=== PATIENT | male | born 1955 | race Caucasian/White ===

== ENCOUNTER 2016-11-30 19:30 | Inpatient (IN) | payer OTHER, BC ==
[~2016-11-30] VITALS: Ht 185.4 cm; Wt 112.0 kg
[2016-11-30 19:32] VITALS: BP 115/64; PULSE 64; RESP 15; TEMP 98; O2SAT 98
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
[2016-11-30 20:15] LABS: AUTOMATED NEUTROPHIL # 5.3 TH/MM3 (1.8-7.7); BASOPHIL % 0.3 % (0.0-2.0); EOSINOPHIL # 0.2 TH/MM3 (0-0.4); EOSINOPHIL % 3.4 % (0.0-4.0); HEMATOCRIT 37.1 % (39.0-51.0); HEMO FLAGS DIFF FINAL; LYMPH % 16.9 % (9.0-44.0); LYMPHOCYTE # 1.2 TH/MM3 (1.0-4.8); MEAN CELL VOLUME 95.2 FL (80.0-100.0); MEAN CORPUSCULAR HEMOGLOBIN 33.7 PG (27.0-34.0); MEAN CORPUSCULAR HGB CONC 35.4 % (32.0-36.0); MONO % 5.1 % (0.0-8.0); NEUT % 74.3 % (16.0-70.0); PLATELET COUNT 156 TH/MM3 (150-450); RED BLOOD COUNT 3.89 MIL/MM3 (4.50-5.90); RED CELL DISTRIBUTION WIDTH 12.3 % (11.6-17.2); WHITE BLOOD COUNT 7.1 TH/MM3 (4.0-11.0)
[2016-11-30] MEDS ORDERED: LIDOCAINE 1%/EPINEPHrine 1:100,000 SOLN 20 ML VIAL INFIL ONE (20:30)
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
[2016-11-30 20:37] LABS: BICARBONATE 27.9 MEQ/L (21.0-32.0); POTASSIUM 3.8 MEQ/L (3.5-5.1)
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
[2016-11-30] MEDS ORDERED: IOHEXOL 350 MG/ML 10 ML VIAL (for RAD DIAG) IV ONE (21:14)
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
[2016-11-30] MEDS ORDERED: NALOXONE HCL 0.4 MG/ML AMP IV PUSH PRN (21:45)
[2016-11-30] MEDS: MORPHINE SULFATE 4 MG/ML INJ IV PUSH PRN (22:18)
[2016-11-30] MEDS ORDERED: SODIUM CHLORIDE 0.9% FLUSH 5 ML FLUSH IVF PRN (23:15)
[2016-11-30] MEDS ORDERED: ACETAMINOPHEN 325 MG TAB PO PRN (23:15)
[2016-11-30] MEDS ORDERED: ONDANSETRON HCL 4 MG/2 ML VIAL IV PRN (23:15)
[2016-11-30] MEDS ORDERED: ENALAPRILAT 1.25 MG/ML VIAL IV PRN (23:15)
[2016-11-30 23:53] VITALS: BP 102/56; PULSE 79; RESP 18; O2SAT 97
[2016-12-01] MEDS ORDERED: ACETAMINOPHEN 1000 MG/100 ML VIAL IV SCH
[2016-12-01] MEDS ORDERED: PANTOPRAZOLE SODIUM 40 MG VIAL IVP SCH
[2016-12-01] MEDS: DOCUSATE SODIUM 100 MG CAP PO SCH ×2 (00:33→08:47)
[2016-12-01] MEDS: METHOCARBAMOL 500 MG TAB PO SCH ×3 (00:33→13:22)
[2016-12-01 01:00] VITALS: BP 130/69; PULSE 84; RESP 18; TEMP 98.7; O2SAT 98
[2016-12-01] MEDS ORDERED: LISI10TA3 PO (02:02)
[2016-12-01] MEDS ORDERED: LAMI250T PO (02:03)
[2016-12-01] MEDS: BACITRACIN TOP OINT 15 GM TUBE TOP SCH ×2 (02:21→08:48)
[2016-12-01] MEDS: oxyCODONE/ACETAMINOPHEN 5 MG/325 MG TAB PO PRN ×2 (03:48→17:45)
[2016-12-01 04:10] VITALS: BP 118/66; PULSE 77; RESP 17; TEMP 97.5; O2SAT 97
[2016-12-01 06:17] LABS: AUTOMATED NEUTROPHIL # 5.7 TH/MM3 (1.8-7.7); BASOPHIL % 0.2 % (0.0-2.0); HEMATOCRIT 31.8 % (39.0-51.0); HEMO FLAGS DIFF FINAL; LYMPH % 10.3 % (9.0-44.0); LYMPHOCYTE # 0.7 TH/MM3 (1.0-4.8); MEAN CELL VOLUME 94.8 FL (80.0-100.0); MEAN CORPUSCULAR HEMOGLOBIN 33.7 PG (27.0-34.0); MEAN CORPUSCULAR HGB CONC 35.6 % (32.0-36.0); MONO % 6.7 % (0.0-8.0); NEUT % 82.8 % (16.0-70.0); PLATELET COUNT 133 TH/MM3 (150-450); RED BLOOD COUNT 3.35 MIL/MM3 (4.50-5.90); RED CELL DISTRIBUTION WIDTH 12.1 % (11.6-17.2); WHITE BLOOD COUNT 6.9 TH/MM3 (4.0-11.0)
[2016-12-01 06:28] LABS: INTERNATIONAL NORMALIZED RATIO 1.1 RATIO; PROTHROMBIN TIME - PATIENT 11.7 SEC (9.8-11.6)
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
[2016-12-01 07:25] LABS: ALT (GPT) 25 U/L (12-78); ANION GAP 8 MEQ/L (5-15); AST (GOT) 27 U/L (15-37); BICARBONATE 26.3 MEQ/L (21.0-32.0); BLOOD UREA NITROGEN 14 MG/DL (7-18); CHLORIDE 105 MEQ/L (98-107); GLOMERULAR FILTRATION RATE 93 ML/MIN (>89); POTASSIUM 4.3 MEQ/L (3.5-5.1); SODIUM (NA) 139 MEQ/L (136-145)
[2016-12-01 07:27] LABS: ALKALINE PHOSPHATASE 73 U/L (45-117); TOTAL BILIRUBIN ADULT 0.8 MG/DL (0.2-1.0)
[2016-12-01 08:12] VITALS: BP 116/75; PULSE 77; RESP 16; TEMP 97.8; O2SAT 98
[2016-12-01] MEDS: ACETAMINOPHEN 1000 MG/100 ML VIAL IV SCH ×2 (08:47→13:22)
[2016-12-01] MEDS: MORPHINE SULFATE 4 MG/ML INJ IV PUSH PRN ×2 (08:49→13:23)
[2016-12-01] MEDS ORDERED: SODIUM CHLORIDE FLUSH BID IVF SCH (09:00)
[2016-12-01] MEDS ORDERED: MAGNESIUM HYDROXIDE SUSP 30 ML CUP PO SCH (09:00)
[2016-12-01] MEDS ORDERED: LIDOCAINE HCL 5% PATCH TD SCH (09:00)
[2016-12-01 12:22] VITALS: BP 121/79; PULSE 78; RESP 18; TEMP 97.7; O2SAT 98
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
[2016-12-01 16:00] VITALS: BP 121/79; PULSE 78; RESP 16; TEMP 97.7; O2SAT 98
[2016-12-01] MEDS ORDERED: DOCU1CAP39 PO (16:56)
[2016-12-01] MEDS ORDERED: MILKSUS PO (16:56)
[2016-12-01] MEDS ORDERED: OXYC1TAB63 PO (18:18)
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
[2016-12-01] MEDS ORDERED: REMOVE OLD LIDOCAINE PATCH T-DERMAL SCH (21:00)
== END 2016-12-01 20:36 | disposition home or self-care (01) | DRG 501 ==
LOC: NEPC 19:30 → NEDA 21:47 → N06B 12-01 01:00
PROVIDERS: ADMIT Surgery; ATTEND Surgery
PROC: 0JQ00ZZ Repair Scalp Subcutaneous Tissue and Fascia, Open Approach (ICD-10-PCS; principal; 2016-11-30)
DX: S42.112A Displaced fracture of body of scapula, left shoulder, initial encounter for closed fracture (principal); S27.321A Contusion of lung, unilateral, initial encounter; S22.42XA Multiple fractures of ribs, left side, initial encounter for closed fracture; S01.01XA Laceration without foreign body of scalp, initial encounter; I10 Essential (primary) hypertension; F17.290 Nicotine dependence, other tobacco product, uncomplicated; N28.1 Cyst of kidney, acquired; V29.9XXA Motorcycle rider (driver) (passenger) injured in unspecified traffic accident, initial encounter; Y92.410 Unspecified street and highway as the place of occurrence of the external cause
CPT/HCPCS: 12001; 12011; 70450; 71010; 71260; 72125; 73030; 74177; 80048; 80053; 85025; 85610; 94150; 94640; 94667; C9113; J0131; J2270; Q9967

== ENCOUNTER 2016-12-04 10:18 | Emergency (ER) | payer BC ==
[~2016-12-04] VITALS: Ht 185.4 cm; Wt 110.0 kg
[~2016-12-04 10:18] MED LIST: DOCU1CAP39 PO; LAMI250T PO; LISI10TA3 PO; MILKSUS PO; OXYC1TAB63 PO
[2016-12-04 10:20] VITALS: BP 151/79; PULSE 94; RESP 20; TEMP 98.1; O2SAT 97
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
== END 2016-12-04 11:35 | disposition home or self-care (01) ==
LOC: NEPB 10:18
DX: Z48.02 Encounter for removal of sutures (principal); I10 Essential (primary) hypertension; Z87.442 Personal history of urinary calculi; Z72.0 Tobacco use
CPT/HCPCS: 99281

== ENCOUNTER 2016-12-05 06:52 | Inpatient (IN) | payer OTHER, BC ==
[2016-12-05] VITALS (14 sets, daily range): BP systolic 83–164; BP diastolic 45–76; PULSE 68–92; RESP 16–25; TEMP 97.4–99; O2SAT 97–100
[~2016-12-05] VITALS: Ht 185.4 cm; Wt 123.6 kg
[2016-12-05] MEDS ORDERED: SODIUM CHLOR 0.9% 1000 ML INJ 1,000 ML IV ONE ×2 (07:15)
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
[2016-12-05 07:45] LABS: AUTOMATED NEUTROPHIL # 6.8 TH/MM3 (1.8-7.7); BASOPHIL % 0.5 % (0.0-2.0); EOSINOPHIL # 0.3 TH/MM3 (0-0.4); EOSINOPHIL % 3.4 % (0.0-4.0); HEMATOCRIT 25.8 % (39.0-51.0); HEMO FLAGS DIFF FINAL; LYMPH % 21.7 % (9.0-44.0); LYMPHOCYTE # 2.1 TH/MM3 (1.0-4.8); MEAN CELL VOLUME 97.9 FL (80.0-100.0); MEAN CORPUSCULAR HGB CONC 34.7 % (32.0-36.0); MONO % 4.4 % (0.0-8.0); PLATELET COUNT 207 TH/MM3 (150-450); RED BLOOD COUNT 2.64 MIL/MM3 (4.50-5.90); RED CELL DISTRIBUTION WIDTH 12.9 % (11.6-17.2); WHITE BLOOD COUNT 9.6 TH/MM3 (4.0-11.0)
[2016-12-05 07:52] LABS: APTT (PATIENT) 22.6 SEC (24.3-30.1); INTERNATIONAL NORMALIZED RATIO 1.1 RATIO
[2016-12-05 08:06] LABS: ANION GAP 11 MEQ/L (5-15); AST (GOT) 33 U/L (15-37); BICARBONATE 26.5 MEQ/L (21.0-32.0); BLOOD UREA NITROGEN 12 MG/DL (7-18); CHLORIDE 101 MEQ/L (98-107); GLOMERULAR FILTRATION RATE 55 ML/MIN (>89); POTASSIUM 3.6 MEQ/L (3.5-5.1); SODIUM (NA) 138 MEQ/L (136-145)
[2016-12-05 08:10] LABS: ALKALINE PHOSPHATASE 62 U/L (45-117); ALT (GPT) 29 U/L (12-78); TOTAL BILIRUBIN ADULT 1.1 MG/DL (0.2-1.0)
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
[2016-12-05] MEDS ORDERED: IOHEXOL 350 MG/ML 10 ML VIAL (for RAD DIAG) IV ONE (08:49)
[2016-12-05] MEDS ORDERED: SODIUM CHLOR 0.9% 250 ML INJ 250 ML IV ONE (09:00)
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
[2016-12-05] MEDS ORDERED: MIDAZOLAM HCL 5 MG/5 ML VIAL ONE (10:07)
[2016-12-05] MEDS ORDERED: fentaNYL CITRATE 250 MCG/5 ML AMP ONE (10:08)
[2016-12-05] MEDS ORDERED: oxyCODONE/ACETAMINOPHEN 5 MG/325 MG TAB PO PRN (10:15)
[2016-12-05] MEDS: SODIUM CHLORIDE 0.9% FLUSH 5 ML FLUSH IV FLUSH SCH ×2 (10:15→20:55)
[2016-12-05] MEDS ORDERED: MISCELLANEOUS NURSING INFORMATION XX SCH (10:15)
[2016-12-05] MEDS ORDERED: HYDROmorphone HCL PF 1 MG/ML VIAL IV PUSH ONE (10:15)
[2016-12-05] MEDS ORDERED: SODIUM CHLORIDE 0.9% FLUSH 5 ML FLUSH IV FLUSH PRN (10:15)
[2016-12-05] MEDS ORDERED: CHLORHEXIDINE GLUCONATE 2 % 1 PACK (2 CLOTHS) TOP PRN (10:15)
[2016-12-05] MEDS ORDERED: IODIXANOL 320 MG/ML 50 ML VIAL (for RAD SPEC) I-ARTERIAL ONE (11:39)
[2016-12-05] MEDS ORDERED: GELATIN 12 MM/7 MM FOAM I-ARTERIAL ONE (11:39)
--- NOTE | 2016-12-05 11:57 | PD.RAD ---
Post Procedure Progress Note Pre Procedure Diagnosis: (1) Splenic laceration Post Procedure Diagnosis: (1) Splenic laceration Procedure Date: Dec 05, 2016 Supervising Radiologist: Myke Delgado JR Proceduralist/Assist: Shira Best, RT(R)(CV), Blanca Tomlin RT(R)() Anesthesia: Conscious Sedation Plan of Activity Patient to Unit: Critical Care Patient Condition: Good See PACS Report for procedural detail/treatment Vascular-Arterial Procedure Procedure 1 Procedure Site: Celiac Procedure(s): Embolization Access Access Site(s): Right Femoral Artery Findings: Splenic laceration. Angio shows no active hemorrhage. Successful gelfoam embolization. Jr. Danny,Myke Beach MD Dec 05, 2016 11:57
[2016-12-05] MEDS: LIDOCAINE HCL 5% PATCH TD SCH (12:00)
[2016-12-05] MEDS ORDERED: ONDANSETRON HCL 4 MG/2 ML VIAL ONE (12:10)
[2016-12-05] MEDS ORDERED: ONDANSETRON HCL 4 MG/2 ML VIAL IV PUSH ONE (12:15)
[2016-12-05] MEDS: HYDROmorphone HCL PF 1 MG/ML VIAL IV PUSH PRN ×4 (13:12→22:50)
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
[2016-12-05] MEDS: SODIUM CHLOR 0.9% 1000 ML INJ 1,000 ML IV SCH ×2 (20:05→20:56)
[2016-12-05] MEDS: REMOVE OLD PATCH T-DERMAL SCH (21:00)
[2016-12-06] VITALS (9 sets, daily range): BP systolic 127–154; BP diastolic 69–85; PULSE 73–96; RESP 18–25; TEMP 98.1–99.8; O2SAT 97–100
[2016-12-06] MEDS: CHLORHEXIDINE GLUCONATE 2 % 1 PACK (2 CLOTHS) TOP SCH (03:12)
[2016-12-06] MEDS: HYDROmorphone HCL PF 1 MG/ML VIAL IV PUSH PRN ×2 (05:17→08:55)
[2016-12-06 06:20] LABS: AUTOMATED NEUTROPHIL # 8.4 TH/MM3 (1.8-7.7); BASOPHIL % 0.2 % (0.0-2.0); EOSINOPHIL % 0.2 % (0.0-4.0); HEMATOCRIT 24.5 % (39.0-51.0); HEMO FLAGS DIFF FINAL; LYMPH % 7.4 % (9.0-44.0); LYMPHOCYTE # 0.7 TH/MM3 (1.0-4.8); MEAN CELL VOLUME 93.9 FL (80.0-100.0); MEAN CORPUSCULAR HEMOGLOBIN 33.6 PG (27.0-34.0); MEAN CORPUSCULAR HGB CONC 35.8 % (32.0-36.0); MONO % 9.6 % (0.0-8.0); NEUT % 82.6 % (16.0-70.0); PLATELET COUNT 181 TH/MM3 (150-450); RED BLOOD COUNT 2.61 MIL/MM3 (4.50-5.90); RED CELL DISTRIBUTION WIDTH 14.5 % (11.6-17.2); WHITE BLOOD COUNT 10.1 TH/MM3 (4.0-11.0)
[2016-12-06] MEDS: SODIUM CHLOR 0.9% 1000 ML INJ 1,000 ML IV SCH (06:35)
[2016-12-06 06:53] LABS: BICARBONATE 26.3 MEQ/L (21.0-32.0); POTASSIUM 4.2 MEQ/L (3.5-5.1)
--- NOTE | 2016-12-06 07:23 | RADRPT ---
EXAM DATE/TIME: 12/06/2016 04:26 [facility] COMPARISON: CHEST SINGLE AP, December 01, 2016, 5:16. INDICATIONS : Shortness of breath. MEDICAL HISTORY : Hypertension. Carcinoma, bladder. SURGICAL HISTORY : Gastric bypass. ENCOUNTER: Subsequent ACUITY: 2 days PAIN SCORE: Non-responsive. LOCATION: Bilateral chest FINDINGS: Heart size is mildly enlarged. There is patchy airspace disease in the lungs. Small left effusion. CONCLUSION: 1. Patchy airspace disease in the lungs, left greater than right increased from December 01. Small left effusion. No pneumothorax. Rafi Raymond MD on December 06, 2016 at 7:21 Board Certified Radiologist. This report was verified electronically.
[2016-12-06] MEDS ORDERED: RESP: ALBUTEROL 2.5 MG/IPRATROPIUM 0.5 MG NEB (PRN) INH (08:30)
[2016-12-06] MEDS ORDERED: SODIUM CHLORIDE 0.9% FLUSH 5 ML FLUSH IV FLUSH PRN (08:30)
[2016-12-06] MEDS: LACTULOSE SYRUP 20 GM/30 ML CUP PO SCH (08:50)
[2016-12-06] MEDS: SODIUM CHLORIDE 0.9% FLUSH 5 ML FLUSH IV FLUSH SCH ×2 (08:50→20:50)
[2016-12-06] MEDS: DOCUSATE SODIUM 50 MG/SENNA 8.6 MG TAB PO SCH ×2 (08:56→19:54)
[2016-12-06] MEDS: LIDOCAINE HCL 5% PATCH TD SCH (08:56)
[2016-12-06] MEDS: FAMOTIDINE 20 MG TAB PO SCH ×2 (08:56→19:53)
[2016-12-06] MEDS ORDERED: SODIUM CHLORIDE 0.9% FLUSH 5 ML FLUSH IV FLUSH SCH (09:00)
[2016-12-06] MEDS: RESP: ALBUTEROL 2.5 MG/IPRATROPIUM 0.5 MG NEB (SCH) INH (10:00)
--- NOTE | 2016-12-06 12:20 | RADRPT ---
EXAM DATE/TIME: 12/06/2016 11:42 [facility] COMPARISON: No previous studies available for comparison. INDICATIONS : Leg pain. MEDICAL HISTORY : Carcinoma, bladder. Hypertension. Hernia, hiatal. Kidney stones. SURGICAL HISTORY : Bladder surgery. Gastric bypass. Vasectomy. Hernia repair. ENCOUNTER: Initial ACUITY: 1 day PAIN SCORE: 3/10 LOCATION: Bilateral leg. TECHNIQUE: Venous ultrasound of the left and right leg was performed from the inguinal ligament to the proximal calf. Real-time, color Doppler and spectral tracing, compression and augmentation techniques were us ed. FINDINGS: RIGHT LEG: There is normal compressibility of the deep venous system from the inguinal region to the proximal ca lf. No echogenic clot is seen in the lumen of the common femoral, femoral, popliteal, and posterior tibial veins. There is a normal response of the venous system to proximal and distal augmentation an d respiration. LEFT LEG: There is normal compressibility of the deep venous system from the inguinal region to the proximal ca lf. No echogenic clot is seen in the lumen of the common femoral, femoral, popliteal, and posterior tibial veins. There is a normal response of the venous system to proximal and distal augmentation an d respiration. CONCLUSION: Normal examination for a patient of this age. No DVT. Jerrell Myers MD on December 06, 2016 at 12:18 Board Certified Radiologist. This report was verified electronically.
[2016-12-06] MEDS: LISINOPRIL 10 MG TAB PO SCH (12:55)
[2016-12-06] MEDS: oxyCODONE/ACETAMINOPHEN 5 MG/325 MG TAB PO PRN ×3 (12:55→22:59)
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
[2016-12-06] MEDS: MAGNESIUM HYDROXIDE SUSP 30 ML CUP PO SCH (19:53)
[2016-12-06] MEDS: REMOVE OLD PATCH T-DERMAL SCH (19:56)
[2016-12-07] VITALS (8 sets, daily range): BP systolic 112–126; BP diastolic 56–78; PULSE 80–105; RESP 16–19; TEMP 98.3–99.5; O2SAT 86–98
[2016-12-07] MEDS: RESP: ALBUTEROL 2.5 MG/IPRATROPIUM 0.5 MG NEB (SCH) INH ×4 (03:36→20:20)
[2016-12-07] MEDS: CHLORHEXIDINE GLUCONATE 2 % 1 PACK (2 CLOTHS) TOP SCH (04:00)
[2016-12-07] MEDS: oxyCODONE/ACETAMINOPHEN 5 MG/325 MG TAB PO PRN ×5 (04:01→22:58)
[2016-12-07 04:19] LABS: AUTOMATED NEUTROPHIL # 11.6 TH/MM3 (1.8-7.7); BASOPHIL % 0.3 % (0.0-2.0); EOSINOPHIL # 0.1 TH/MM3 (0-0.4); EOSINOPHIL % 0.6 % (0.0-4.0); HEMATOCRIT 24.7 % (39.0-51.0); HEMO FLAGS DIFF FINAL; LYMPH % 7.9 % (9.0-44.0); LYMPHOCYTE # 1.1 TH/MM3 (1.0-4.8); MEAN CELL VOLUME 94.4 FL (80.0-100.0); MEAN CORPUSCULAR HEMOGLOBIN 32.4 PG (27.0-34.0); MEAN CORPUSCULAR HGB CONC 34.3 % (32.0-36.0); MONO % 9.8 % (0.0-8.0); NEUT % 81.4 % (16.0-70.0); PLATELET COUNT 209 TH/MM3 (150-450); RED BLOOD COUNT 2.61 MIL/MM3 (4.50-5.90); RED CELL DISTRIBUTION WIDTH 14.3 % (11.6-17.2); WHITE BLOOD COUNT 14.3 TH/MM3 (4.0-11.0)
[2016-12-07 05:17] LABS: ANION GAP 6 MEQ/L (5-15); AST (GOT) 56 U/L (15-37); BICARBONATE 28.6 MEQ/L (21.0-32.0); BLOOD UREA NITROGEN 11 MG/DL (7-18); CHLORIDE 100 MEQ/L (98-107); GLOMERULAR FILTRATION RATE 122 ML/MIN (>89); MAGNESIUM 2.2 MG/DL (1.5-2.5); POTASSIUM 4.3 MEQ/L (3.5-5.1); SODIUM (NA) 135 MEQ/L (136-145)
[2016-12-07 05:21] LABS: ALKALINE PHOSPHATASE 70 U/L (45-117); ALT (GPT) 29 U/L (12-78); TOTAL BILIRUBIN ADULT 0.9 MG/DL (0.2-1.0)
[2016-12-07] MEDS: FAMOTIDINE 20 MG TAB PO SCH ×2 (08:03→20:06)
[2016-12-07] MEDS: LISINOPRIL 10 MG TAB PO SCH (08:03)
[2016-12-07] MEDS: DOCUSATE SODIUM 50 MG/SENNA 8.6 MG TAB PO SCH ×2 (08:04→20:05)
[2016-12-07] MEDS: LACTULOSE SYRUP 20 GM/30 ML CUP PO SCH (08:04)
[2016-12-07] MEDS: LIDOCAINE HCL 5% PATCH TD SCH (08:06)
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
[2016-12-07] MEDS: SODIUM CHLORIDE 0.9% FLUSH 5 ML FLUSH IV FLUSH SCH ×2 (08:10→20:06)
--- NOTE | 2016-12-07 15:28 | HHI.PR ---
Subjective Subjective Notes PTD: 7; HD:2 Patient sitting up in bed. He states he is eating and drinking okay. He says things are, "looking good." Objective Vitals/I&O Vital Signs Date Time Temp Pulse Resp B/P Pulse Ox O2 Delivery O2 Flow Rate FiO2 12/07/16 12:00 98.3 91 18 123/56 96 12/07/16 09:16 Room Air 12/07/16 07:58 21 12/07/16 03:41 2.00 Labs Laboratory Tests Test 12/07/16 03:55 White Blood Count 14.3 Red Blood Count 2.61 Hemoglobin 8.5 Hematocrit 24.7 Mean Corpuscular Volume 94.4 Mean Corpuscular Hemoglobin 32.4 Mean Corpuscular Hemoglobin 34.3 Concent Red Cell Distribution Width 14.3 Platelet Count 209 Mean Platelet Volume 7.4 Neutrophils (%) (Auto) 81.4 Lymphocytes (%) (Auto) 7.9 Monocytes (%) (Auto) 9.8 Eosinophils (%) (Auto) 0.6 Basophils (%) (Auto) 0.3 Neutrophils # (Auto) 11.6 Lymphocytes # (Auto) 1.1 Monocytes # (Auto) 1.4 Eosinophils # (Auto) 0.1 Basophils # (Auto) 0.0 CBC Comment DIFF FINAL Differential Comment Sodium Level 135 Potassium Level 4.3 Chloride Level 100 Carbon Dioxide Level 28.6 Anion Gap 6 Blood Urea Nitrogen 11 Creatinine 0.66 Estimat Glomerular Filtration 122 Rate Random Glucose 84 Calcium Level 8.1 Phosphorus Level 3.1 Magnesium Level 2.2 Total Bilirubin 0.9 Aspartate Amino Transf 56 (AST/SGOT) Alanine Aminotransferase 29 (ALT/SGPT) Alkaline Phosphatase 70 Total Protein 5.9 Albumin 2.5 Radiology Last Impressions Chest X-Ray 12/07/16 0817 Signed Impressions: Service Date/Time: Wednesday, December 07, 2016 07:24 - CONCLUSION: Bibasilar densities and left basilar pleural-parenchymal density. Yunior Gallo MD Lower Extremity Ultrasound 12/06/16 0000 Signed Impressions: Service Date/Time: Tuesday, December 06, 2016 11:42 - CONCLUSION: Normal examination for a patient of this age. No DVT. Jerrell Myers MD Splenic Arteriogram 12/05/16 1136 Signed Impressions: Service Date/Time: Monday, December 05, 2016 09:35 - CONCLUSION: Splenic artery angiography in this patient with splenic laceration shows no current ongoing active hemorrhage. Gelfoam embolization of the splenic artery performed. Myke Delgado Jr., MD Tibia/Fibula X-Ray 12/05/16 0000 Signed Impressions: Service Date/Time: Monday, December 05, 2016 08:03 - CONCLUSION: Negative for fracture or dislocation. Follow up in 7-10 days is suggested if symptoms persist. Albert Erwin MD FACR Chest CT 12/05/16 0000 Signed Impressions: Service Date/Time: Monday, December 05, 2016 08:37 - CONCLUSION: 1. New splenic laceration. Intraperitoneal hematoma noted. 2. Small left pleural effusion. 3. 3 small nodular densities involving the left mid lung. These were obscured by areas of consolidation on the prior study. A followup CT the thorax is suggested in 6 months. 4. Left-sided rib fractures. 5. Left scapular fracture. Myke Delgado Jr., MD Ankle X-Ray 12/05/16 0000 Signed Impressions: Service Date/Time: Monday, December 05, 2016 08:04 - CONCLUSION: Negative for fracture or dislocation. Follow up in 7-10 days is suggested if symptoms persist.. Albert Erwin MD FACR Abdomen/Pelvis CT 12/05/16 0000 Signed Impressions: Service Date/Time: Monday, December 05, 2016 08:37 - CONCLUSION: Spleen laceration with a large amount of peritoneal blood and displaced rib fractures on the left, new from the comparison study of 11/30/16. This would be grade 3- 4 laceration. Albert Erwin MD FACR Narrative Exam GENERAL: This is a 61 year old male sitting up in bed in no acute distress SKIN: Warm and dry. HEAD: Normocephalic. Healing laceration noted to left scalp. EYES: PERRLA ENT: No nasal bleeding or discharge. Mucous membranes pink and moist. NECK: Trachea midline. No JVD. CARDIOVASCULAR: Regular rate and rhythm. RESPIRATORY: No accessory muscle use. Lungs are clear to auscultation. Breath sounds equal bilaterally. No distress or dyspnea. GASTROINTESTINAL: BS + x 4 quads. Abdomen soft, non-tender, nondistended. MUSCULOSKELETAL: Extremities without cyanosis, or edema. + peripheral pulses x 4 extremities. Warm with good capillary refill and sensation. MAEW. NEUROLOGICAL: Awake and alert. Normal speech and pattern. A/P Problem List: (1) Pulmonary contusion (2) Splenic laceration (3) Multiple rib fractures (4) Scapular fracture (5) Closed fracture of body of left scapula (6) Cramps of left lower extremity Assessment and Plan [place]: This is a 61-year-old male who [place] [facility] [place]. He comes back with dizziness and frequent syncopal episodes at home with falls. He sustained additional rib fractures now due to these falls and has a splenic laceration. INJURIES: Left scapula fracture Left rib fractures - multiple Splenic laceration with hemoperitoneum 3 small nodular densities in the left midlung - patient made aware of these findings at first hospitalization Procedures: 12/05: IR for splenic embolization Diet: Regular diet. Tolerating po diet. Encourage good po intake with each meal. Pulmonary: Encourage good pulmonary toileting. IS and acapella at bedside and pt encouraged to use. Rationale for use explained to patient, and verbalized understanding. PAIN Management: Percocet. Dilaudid IV for breakthrough pain. Lidoderm patch. Bilateral lower extremity Doppler ultrasound is normal. There is no DVT. Activity: OOB with assist. PT and OT ordered GI prophylaxis: Pepcid po Bowel regimen: Colace and MOM. Lactulose daily. LBM: 12/05 DC Acuna catheter. DVT prophylaxis: Mechanical VTE with SCDs. Chemical management with Lovenox SQ. DC Planning: Case management consulted for assistance with final discharge disposition. Plan for discharge tomorrow morning if H & H stable. Patient is in agreement. Emotional support provided to patient and family at bedside and plan of care discussed. Discussed with RN at bedside. Patient is hemodynamically stable and being managed on the med/surg floor. Problem Qualifiers (1) Splenic laceration: Qualified Code: S36.039A - Splenic laceration, initial encounter Sonal Joe Dec 07, 2016 15:28
[2016-12-07] MEDS: MAGNESIUM HYDROXIDE SUSP 30 ML CUP PO SCH (20:06)
[2016-12-07] MEDS: REMOVE OLD PATCH T-DERMAL SCH (20:08)
[2016-12-08] VITALS: BP 112/68; PULSE 108; RESP 18; TEMP 100; O2SAT 93
[2016-12-08] MEDS: RESP: ALBUTEROL 2.5 MG/IPRATROPIUM 0.5 MG NEB (SCH) INH ×2 (03:17→09:30)
[2016-12-08 05:16] LABS: HEMATOCRIT 24.2 % (39.0-51.0); REVIEW FLAG FINAL
[2016-12-08 08:00] VITALS: BP 130/70; PULSE 94; RESP 18; TEMP 99.7; O2SAT 92
[2016-12-08 09:32] VITALS: O2SAT 93
[2016-12-08] MEDS: FAMOTIDINE 20 MG TAB PO SCH (09:51)
[2016-12-08] MEDS: DOCUSATE SODIUM 50 MG/SENNA 8.6 MG TAB PO SCH (09:51)
[2016-12-08] MEDS: LIDOCAINE HCL 5% PATCH TD SCH (09:52)
[2016-12-08] MEDS: LACTULOSE SYRUP 20 GM/30 ML CUP PO SCH (09:52)
[2016-12-08] MEDS: LISINOPRIL 10 MG TAB PO SCH (09:52)
[2016-12-08] MEDS: SODIUM CHLORIDE 0.9% FLUSH 5 ML FLUSH IV FLUSH SCH (09:53)
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
== END 2016-12-08 12:36 | disposition home or self-care (01) | DRG 988 ==
LOC: NEPC 06:52 → NEDA 09:06 → N03B 12:58 → N07B 12-06 13:36
PROVIDERS: ADMIT Surgery Trauma Surgery; ATTEND Surgery Trauma Surgery
PROC: 04L43DZ Occlusion of Splenic Artery with Intraluminal Device, Percutaneous Approach (ICD-10-PCS; principal; 2016-12-05)
DX: S36.031A Moderate laceration of spleen, initial encounter (principal); S22.42XA Multiple fractures of ribs, left side, initial encounter for closed fracture; I10 Essential (primary) hypertension; Z98.84 Bariatric surgery status; F17.290 Nicotine dependence, other tobacco product, uncomplicated; M25.572 Pain in left ankle and joints of left foot; M79.662 Pain in left lower leg; W18.39XA Other fall on same level, initial encounter; V29.9XXA Motorcycle rider (driver) (passenger) injured in unspecified traffic accident, initial encounter; Y92.410 Unspecified street and highway as the place of occurrence of the external cause
CPT/HCPCS: 36246; 36430; 37244; 71010; 71260; 73590; 73610; 74177; 75726; 75774; 76937; 80048; 80053; 83735; 84100; 85014; 85018; 85025; 85610; 85730; 86850; 86900; 86901; 86920; 87641; 93970; 94150; 94640; 94664; 94667; 96360; 99152; 99153; C1769; C1887; C1894; J1170; J2250; J2405; J3010; J7030; J7050; P9016; Q9967